=== PATIENT | female | born 1965 | race Hispanic/Latino ===

== ENCOUNTER 2020-01-20 07:02 | Day surgery (SDC) | payer OTHER ==
[2020-01-20] MEDS ORDERED: SODIUM CHLORIDE 0.9% 500 ML 500 ML IV SCH (08:00)
[2020-01-20 08:13] LABS: Basophils % (Auto) 0.4 % (0.0-1.8); Eosinophils # (Auto) 0.2 K/mm3 (0.0-0.4); Eosinophils % (Auto) 2.3 % (0.0-4.3); Hemoglobin 13.5 gm/dl (10.1-14.3); Lymphocytes # (Auto) 2.3 K/mm3 (1.2-5.4); Mean Corpuscular HGB Conc 35 % (30-34); Mean Corpuscular Volume 86 fl (79-97); Monocytes # (Auto) 0.6 K/mm3 (0.0-0.8); Monocytes % (Auto) 8.7 % (0.0-7.3); Platelet Count 176 K/mm3 (140-440); Red Blood Count 4.51 M/mm3 (3.65-5.03); Red Cell Distribution Width 14.7 % (13.2-15.2)
[2020-01-20 08:23] LABS: Blood Urea Nitrogen 11 mg/dL (7-17); Calcium 9.5 mg/dL (8.4-10.2); Hemolysis Index 9
[2020-01-20 08:26] LABS: INR 1.12 (0.87-1.13)
[2020-01-20] MEDS ORDERED: HEPARIN/NS 5000 UNIT/500ML 1,000 ML IR ONE (09:06)
[2020-01-20] MEDS ORDERED: HEPARIN 10,000 UNITS/10 ML VIAL ONE (09:06)
[2020-01-20 09:07] LABS: BUN/Creatinine Ratio 22
[2020-01-20] MEDS: fentaNYL 100 MCG/2 ML INJ ONE ×2 (09:40→09:53)
[2020-01-20] MEDS: LIDOCAINE (2%) 20 MG/1 ML VIAL 20 ML MDV INFILTRATI ONE ×2 (09:41→09:56)
[2020-01-20] MEDS: VERAPAMIL 5 MG/2 ML INJ ONE ×2 (09:41→10:02)
[2020-01-20] MEDS: MIDAZOLAM 2 MG/2 ML INJ ONE ×2 (09:41→09:53)
[2020-01-20] MEDS ORDERED: NITROGLYCERIN 0.4 MG TAB SUBL SL ONE (10:11)
[2020-01-20] MEDS ORDERED: HEPARIN/ 0.45% NACL DRIP 25,000 UNIT/500 ML BAG ONE (10:15)
[2020-01-20] MEDS ORDERED: NITROGLYCERIN DRIP 50 MG/250 ML BOTTLE ONE (10:15)
--- NOTE | 2020-01-20 13:20 | Short Stay Summary ---
Short Stay Documentation Date of service: 01/20/20 - History H&P: obtained from office - Allergies and Medications Current Medications: Allergies codeine Allergy (Verified 01/20/20 07:34) Shortness of Breath nickel Adverse Reaction (Verified 01/20/20 07:34) Rash Sulfa (Sulfonamide Antibiotics) Adverse Reaction (Verified 01/20/20 07:34) Rash Home Medications Medication Instructions Recorded Confirmed Last Taken Type Aspirin [Adult Aspirin] 81 mg PO 01/20/20 01/20/20 06:30 History Cholecalciferol (Vitamin D3) 5,000 unit PO 01/20/20 01/19/20 History [Vitamin D3 5,000 UNIT] ISOSORBIDE MONOnitrate [Imdur ER] 30 mg PO DAILY 01/20/20 01/20/20 01/19/20 History Losartan [Cozaar] 50 mg PO QDAY 01/20/20 01/20/20 01/20/20 06:30 History Metoprolol Xl [Metoprolol 50 mg PO QDAY 01/20/20 01/20/20 01/20/20 06:30 History SUCCINATE ER TAB] Prasugrel HCl [Effient] 10 mg PO 01/20/20 01/20/20 06:30 History Taurine [Pure Taurine] 500 mg PO 01/20/20 01/19/20 History Active Medications Sodium Chloride (Nacl 0.9% 500 Ml) 500 mls @ 50 mls/hr IV DIRECT GRAYSON Stop: 01/20/20 17:59 Last Admin: 01/20/20 08:40 Dose: 50 mls/hr Documented by: - Brief post op/procedure progress note Date of procedure: 01/20/20 Pre-op diagnosis: CAD Post-op diagnosis: same Procedure: [facility] - see dictated cath report Anesthesia: local Estimated blood loss: none Condition: stable - Hospital course Hospital course: pt to tx to [facility] where Dr. Gregory has agreed to accept for revascularization - Disposition Condition at discharge: Stable Disposition: [id number] ANOTHER TYPE [facility] - Discharge Diagnoses (1) CAD (coronary artery disease) Status: Chronic (2) Stented coronary artery Status: Chronic Short Stay Discharge Plan Diet: low fat, low cholesterol, low salt Wound: open to air, keep clean and dry, per your surgeon's advice Follow up with: TONI CELESTIN MD [Primary Care Provider] - 7 Days
--- NOTE | 2020-01-20 15:57 | Cardiac Catherization Report ---
INDICATION FOR PROCEDURE: The patient is a 54-year-old white female with history of hypertension and history of asthma as a child and obese, had severe stenosis of the proximal LAD and underwent PCI of the proximal LAD with a drug-eluting stent on 06/26/2019. Félix 3 mm x 18 mm stent was used. Presently, she presents with chest pain at rest of 2 weeks' duration. Hence, scheduled for cardiac catheterization for definitive diagnosis and treatment. The patient is aware of the procedure, potential complications and alternatives of therapy available. DESCRIPTION OF PROCEDURE: The patient was brought to the catheterization laboratory in a fasting condition. The patient was evaluated for moderate sedation and was felt to be appropriate candidate for moderate sedation, received IV Versed and fentanyl. Subsequently, prepared in standard fashion. The patient has feeble right radial pulse. However, the right radial artery access was obtained percutaneously and 5-Prydeinig slender sheath was introduced. A 5-Prydeinig multipurpose catheter was used to obtain the angiograms of the left ventricle in THOMAS projection followed by angiograms of the left coronary artery and right coronary artery in multiple views. A 5-Prydeinig JR4 catheter was used to engage the right coronary artery. At the end of the procedure, catheter and sheath were removed. The patient had some chest pain during the procedure and was started on IV nitroglycerin. The patient tolerated the procedure well. The patient was monitored throughout the procedure with pulse oximetry, EKG monitoring and hemodynamic monitoring. No untoward complications noted. The patient at the end of the procedure is oriented x 3, no focal deficits noted and breathing normally. The patient's sedation started at 9:53 a.m. and ended at 10:15 a.m. The patient was transferred to the room in stable condition. Radial band was applied for hemostasis. No untoward complications were noted. Following findings were noted. HEMODYNAMICS: 1. Opening aortic pressure 140/68, left ventricular pressure 140/29. No gradient across the aortic valve. Estimated ejection fraction 55%. 2. Left ventriculogram done in THOMAS projection shows normal sized left ventricle with normal contractility. Ejection fraction was felt to be 50-55%. Mitral regurgitation could not be evaluated because of limited amount of dye used. 3. Left coronary artery arises normally from left coronary cusp. Left main without significant disease. Stent is noted in the proximal LAD, which shows severe in-stent restenosis with more than 95% diffuse in-stent restenosis. Rest of the mid LAD without significant disease. Distal LAD is small caliber vessel with diffuse disease, however, because of severe proximal stenosis, difficult to evaluate the distal LAD. Circumflex artery represented by a large marginal branch and AV groove branch shows only minimal irregularities. Similarly, right coronary artery dominant vessel shows only minimal irregularities. FINAL IMPRESSION: Normal sized left ventricle with normal contractility. Severe in-stent restenosis of the proximal left anterior descending. Considering the severe in-stent restenosis with symptoms at rest, the patient would benefit from revascularization. The patient would prefer surgical revascularization. Discussed with Dr. Gregory who is accepting the patient to be transferred. Considering the patient is having chest pain at rest, we will continue nitroglycerin. The patient is on aspirin in addition to prasugrel. For now, we will hold the prasugrel. Findings were explained in detail to the patient. She understands. JOB# [id number] BRIJESH/ERINN RENTERIA
[2020-01-20] MEDS ORDERED: ACETAMINOPHEN 325 MG TAB PO PRN (17:00)
[2020-01-20] MEDS ORDERED: ONDANSETRON 4 MG/2 ML INJ IV PRN (17:00)
[2020-01-20 18:34] VITALS: BP 137/50
[2020-01-21] MEDS ORDERED: METOPROLOL SUCCINATE XL 50 MG TAB PO SCH (10:00)
[2020-01-21] MEDS ORDERED: ASPIRIN EC 81 MG TAB PO SCH (10:00)
[2020-01-21] MEDS ORDERED: LOSARTAN 50 MG TAB PO SCH (10:00)
== END 2020-01-20 20:26 | disposition other institution (70) ==
LOC: CATHLABREC 07:02
PROVIDERS: ATTEND Internal Medicine
DX: R07.89 Other chest pain (principal); I25.110 Atherosclerotic heart disease of native coronary artery with unstable angina pectoris; T82.855A Stenosis of coronary artery stent, initial encounter; E66.01 Morbid (severe) obesity due to excess calories; Z88.2 Allergy status to sulfonamides; Z88.8 Allergy status to other drugs, medicaments and biological substances; Z79.82 Long term (current) use of aspirin; Z79.899 Other long term (current) drug therapy; Z95.5 Presence of coronary angioplasty implant and graft; Z68.41 Body mass index [BMI] 40.0-44.9, adult; Y83.8 Other surgical procedures as the cause of abnormal reaction of the patient, or of later complication, without mention of misadventure at the time of the procedure; Y92.89 Other specified places as the place of occurrence of the external cause
CPT/HCPCS: 36415; 80048; 85025; 85610; 85730; 93458; 99156; C1894; J1644; J2250; J3010; J7040; Q9967